=== PATIENT | female | born 1995 | race Hispanic/Latino ===

== ENCOUNTER 2017-02-02 15:54 | Inpatient (IN) | payer OTHER ==
[~2017-02-02] VITALS: Ht 160 cm; Wt 84.4 kg
[2017-02-02] VITALS (11 sets, daily range): BP systolic 104–127; BP diastolic 63–77
[~2017-02-02 15:54] MED LIST: BACTRIM DS1 TAB PO; CALNA PO; CETRIZINE HCL PO; EPIPEN 2-PAK0.3 MG IM; FERROUS SULF325 M1 PO; IBUPROFEN600 MG PO; NAPROSYN500 MG PO; NO HOME MEDS; OMEPRAZOLE40 MG PO; PREDNISONE20 MG OR; PREDNISONE50 MG PO; TAM75CAP PO; ZOFRAN ODT4 MG PO; ZOFRAN8 MG OR
[2017-02-02 16:37] LABS: URINE BILIRUBIN - DIPSTICK NEGATIVE (NEGATIVE); URINE BLOOD DIPSTICK NEGATIVE (NEGATIVE); URINE CLARITY CLEAR; URINE COLOR YELLOW; URINE GLUCOSE - DIPSTICK NEGATIVE (NEGATIVE); URINE KETONE NEGATIVE (NEGATIVE); URINE LEUK ESTERASE NEGATIVE (NEGATIVE); URINE NITRITE - DIPSTICK NEGATIVE (Negative); URINE PROTEIN - DIPSTICK NEGATIVE (NEG-TRACE)
[2017-02-02 16:40] LABS: BARBITURATES NEGATIVE (NEGATIVE); COCAINE NEGATIVE (NEGATIVE); METHADONE NEGATIVE (NEGATIVE); OXCYCODONE NEGATIVE (NEGATIVE); TETRAHYDROCANNABIONOL NEGATIVE (NEGATIVE); TRICYLIC ANTIDEPRESSANTS NEGATIVE (NEGATIVE)
[2017-02-02 17:57] LABS: HEMATOCRIT 27.9 % (37.0-47.0); IMMATURE GRANULOCYTES 0.5 % (0.0-1.0); MEAN CELL VOLUME 65.2 fL CALC (80.0-100.0); MEAN CORPUSCULAR HGB 18.7 pG CALC (26.0-32.0); MEAN CORPUSCULAR HGB CONC 28.7 g/L CALC (32.0-36.0); NEUT# 8.15 thou/uL (2.00-7.15); RED BLOOD COUNT 4.28 mill/uL (4.20-5.60); RED CELL DISTRI WIDTH 16.7 % (11.5-15.5)
[2017-02-02 18:04] LABS: ALBUMIN 3.6 g/dL (3.2-5.0); ALKALINE PHOSPHATASE 162 u/l (38-126); ANION GAP 13 (6-22 (CALC)); BILIRUBIN, TOTAL 0.6 mg/dL (0.0-1.4); BUN 7 mg/dL (7-17); BUN/CREATININE RATIO 12 (12-20 (CALC)); CALCIUM 8.8 mg/dL (8.4-10.2); CARBON DIOXIDE 22 mmol/l (22-30); CHLORIDE 104 mmol/l (95-108); CREATININE 0.5 mg/dL (0.5-1.0); GFR > 60 ML/MIN (>=60 (CALC)); GFR FOR AFR.AMER. > 60 ML/MIN (>=60 (CALC)); GLUCOSE 72 mg/dL (65-105); POTASSIUM 4.1 mmol/l (3.5-5.1); SGOT/AST 33 u/l (14-36); SGPT/ALT 31 u/l (9-52); SODIUM 136 mmol/l (137-146); TOTAL PROTEIN 6.8 g/dL (6.3-8.2)
[2017-02-02] MEDS ORDERED: FERR SULFATE325 MG PO (18:05)
[2017-02-03] VITALS (28 sets, daily range): BP systolic 90–138; BP diastolic 50–87
[2017-02-04 04:58] LABS: IMMATURE GRANULOCYTES 0.5 % (0.0-1.0); NEUT# 6.93 thou/uL (2.00-7.15)
[2017-02-04 05:03] LABS: HEMATOCRIT 24.3 % (37.0-47.0); MEAN CORPUSCULAR HGB 19.3 pG CALC (26.0-32.0); MEAN CORPUSCULAR HGB CONC 29.2 g/L CALC (32.0-36.0); RED BLOOD COUNT 3.68 mill/uL (4.20-5.60); RED CELL DISTRI WIDTH 15.4 % (11.5-15.5)
[2017-02-04 05:53] LABS: HEMOGLOBIN 7.1 g/dl (12.0-16.0)
[2017-02-04 09:13] VITALS: BP 104/60
[2017-02-04 19:54] VITALS: BP 126/76
[2017-02-05 05:44] VITALS: BP 99/47
[2017-02-05] MEDS ORDERED: IBUPROFEN600 MG PO (07:39)
== END 2017-02-05 12:30 | disposition home or self-care (01) | DRG 775 ==
LOC: OBOP 15:54 → EDSTATUS 15:55 → OB 16:25 → OBOP 16:25 → OB 16:25 → OBOP 17:09 → OB 17:10
PROVIDERS: ADMIT Obstetrics & Gynecology; ATTEND Obstetrics & Gynecology
PROC: 10E0XZZ Delivery of Products of Conception, External Approach (ICD-10-PCS; principal; 2017-02-03)
PROC: 3E033VJ Introduction of Other Hormone into Peripheral Vein, Percutaneous Approach (ICD-10-PCS; 2017-02-03)
DX: O42.02 Full-term premature rupture of membranes, onset of labor within 24 hours of rupture (principal); O99.824 Streptococcus B carrier state complicating childbirth; Z3A.37 37 weeks gestation of pregnancy; Z37.0 Single live birth
CPT/HCPCS: J2540

== ENCOUNTER 2017-03-01 15:39 | Inpatient (IN) | payer OTHER ==
[~2017-03-01] VITALS: Ht 160 cm; Wt 76.4 kg
[~2017-03-01 15:39] MED LIST changes: +FERR SULFATE325 MG PO
[2017-03-01 16:15] LABS: HEMATOCRIT 28.4 % (37.0-47.0); IMMATURE GRANULOCYTES 0.7 % (0.0-1.0); MEAN CELL VOLUME 64.8 fL CALC (80.0-100.0); MEAN CORPUSCULAR HGB 18.3 pG CALC (26.0-32.0); MEAN CORPUSCULAR HGB CONC 28.2 g/L CALC (32.0-36.0); NEUT# 14.6 thou/uL (2.00-7.15); RED BLOOD COUNT 4.38 mill/uL (4.20-5.60); RED CELL DISTRI WIDTH 17.6 % (11.5-15.5)
[2017-03-01 16:32] LABS: ALBUMIN 4.3 g/dL (3.2-5.0); ALKALINE PHOSPHATASE 90 u/l (38-126); AMYLASE 39 u/l (30-110); ANION GAP 18 (6-22 (CALC)); BILIRUBIN, TOTAL 0.8 mg/dL (0.0-1.4); BUN 12 mg/dL (7-17); BUN/CREATININE RATIO 16 (12-20 (CALC)); CARBON DIOXIDE 21 mmol/l (22-30); CHLORIDE 103 mmol/l (95-108); CREATININE 0.7 mg/dL (0.5-1.0); GFR > 60 ML/MIN (>=60 (CALC)); GFR FOR AFR.AMER. > 60 ML/MIN (>=60 (CALC)); GLUCOSE 100 mg/dL (65-105); LIPASE 23 u/l (23-300); SGOT/AST 45 u/l (14-36); SGPT/ALT 37 u/l (9-52); SODIUM 138 mmol/l (137-146); TOTAL PROTEIN 8.2 g/dL (6.3-8.2)
[2017-03-01 17:41] LABS: URINE BILIRUBIN - DIPSTICK NEGATIVE (NEGATIVE); URINE BLOOD DIPSTICK SMALL (NEGATIVE); URINE CLARITY SLIGHT CLOUDY; URINE COLOR YELLOW; URINE GLUCOSE - DIPSTICK NEGATIVE (NEGATIVE); URINE KETONE >=80 mg/dL (NEGATIVE); URINE LEUK ESTERASE SMALL (NEGATIVE); URINE NITRITE - DIPSTICK POSITIVE (Negative); URINE PROTEIN - DIPSTICK 100 mg/dL (NEG-TRACE)
[2017-03-01 17:52] LABS: URINE SQUAMOUS EPITHELIAL CELL FEW EPI/hpf (0-FEW)
[2017-03-01 17:53] LABS: URINE BACTERIA MODERATE hpf
[2017-03-01 19:50] VITALS: BP 103/68
[2017-03-01 21:51] VITALS: BP 90/58
[2017-03-01 22:35] VITALS: BP 101/66
[2017-03-01 23:20] VITALS: BP 95/59
[2017-03-02] VITALS (7 sets, daily range): BP systolic 102–125; BP diastolic 61–77
[2017-03-02 06:32] LABS: HEMATOCRIT 27.3 % (37.0-47.0); HEMOGLOBIN 7.8 g/dl (12.0-16.0); IMMATURE GRANULOCYTES 0.7 % (0.0-1.0); MEAN CELL VOLUME 69.1 fL CALC (80.0-100.0); MEAN CORPUSCULAR HGB 19.7 pG CALC (26.0-32.0); MEAN CORPUSCULAR HGB CONC 28.6 g/L CALC (32.0-36.0); NEUT# 10.26 thou/uL (2.00-7.15); RED BLOOD COUNT 3.95 mill/uL (4.20-5.60); RED CELL DISTRI WIDTH 20.4 % (11.5-15.5)
[2017-03-02 06:36] LABS: ANION GAP 14 (6-22 (CALC)); BUN 13 mg/dL (7-17); BUN/CREATININE RATIO 20 (12-20 (CALC)); CALCIUM 8.4 mg/dL (8.4-10.2); CARBON DIOXIDE 20 mmol/l (22-30); CHLORIDE 110 mmol/l (95-108); CREATININE 0.6 mg/dL (0.5-1.0); GFR > 60 ML/MIN (>=60 (CALC)); GFR FOR AFR.AMER. > 60 ML/MIN (>=60 (CALC)); GLUCOSE 109 mg/dL (65-105); POTASSIUM 3.4 mmol/l (3.5-5.1); SODIUM 140 mmol/l (137-146)
[2017-03-02 08:10] LABS: HEMATOCRIT 26.6 % (37.0-47.0); HEMOGLOBIN 7.8 g/dl (12.0-16.0); IMMATURE GRANULOCYTES 0.7 % (0.0-1.0); MEAN CELL VOLUME 68.4 fL CALC (80.0-100.0); MEAN CORPUSCULAR HGB 20.1 pG CALC (26.0-32.0); MEAN CORPUSCULAR HGB CONC 29.3 g/L CALC (32.0-36.0); NEUT# 8.82 thou/uL (2.00-7.15); RED BLOOD COUNT 3.89 mill/uL (4.20-5.60)
[2017-03-03 04:24] VITALS: BP 100/64
[2017-03-03 05:33] LABS: HEMATOCRIT 26.3 % (37.0-47.0); HEMOGLOBIN 7.4 g/dl (12.0-16.0); IMMATURE GRANULOCYTES 0.8 % (0.0-1.0); MEAN CELL VOLUME 69.4 fL CALC (80.0-100.0); MEAN CORPUSCULAR HGB 19.5 pG CALC (26.0-32.0); MEAN CORPUSCULAR HGB CONC 28.1 g/L CALC (32.0-36.0); NEUT# 5.68 thou/uL (2.00-7.15); RED BLOOD COUNT 3.79 mill/uL (4.20-5.60)
[2017-03-03 05:47] LABS: ANION GAP 12 (6-22 (CALC)); BUN 8 mg/dL (7-17); BUN/CREATININE RATIO 14 (12-20 (CALC)); CALCIUM 8.1 mg/dL (8.4-10.2); CARBON DIOXIDE 19 mmol/l (22-30); CHLORIDE 113 mmol/l (95-108); CREATININE 0.5 mg/dL (0.5-1.0); GFR > 60 ML/MIN (>=60 (CALC)); GFR FOR AFR.AMER. > 60 ML/MIN (>=60 (CALC)); GLUCOSE 80 mg/dL (65-105); POTASSIUM 3.7 mmol/l (3.5-5.1); SODIUM 140 mmol/l (137-146)
[2017-03-03 07:42] VITALS: BP 112/83
[2017-03-03 11:06] VITALS: BP 104/69
[2017-03-03] MEDS ORDERED: BACTRIM DS1 TAB PO (11:51)
[2017-03-03 15:20] VITALS: BP 113/78
== END 2017-03-03 18:37 | disposition home or self-care (01) | DRG 776 ==
LOC: ENPENDDIS → ED 15:39 → ED-I 16:26 → ED 16:26 → ED-I 18:14 → ED 18:32 → MS2 18:33
PROVIDERS: Emergency Medicine; Internal Medicine; Nurse Practitioner Family; ADMIT Internal Medicine; ATTEND Internal Medicine
PROC: 30233N1 Transfusion of Nonautologous Red Blood Cells into Peripheral Vein, Percutaneous Approach (ICD-10-PCS; principal; 2017-03-01)
DX: O86.21 Infection of kidney following delivery (principal); B96.20 Unspecified Escherichia coli [E. coli] as the cause of diseases classified elsewhere; O90.89 Other complications of the puerperium, not elsewhere classified; E87.6 Hypokalemia; O90.81 Anemia of the puerperium; D50.9 Iron deficiency anemia, unspecified
CPT/HCPCS: J0692; P9016; Q9967

== ENCOUNTER 2017-10-03 16:44 | Emergency (ER) | payer SELFPAY ==
[~2017-10-03] VITALS: Ht 160 cm; Wt 75.0 kg
[2017-10-03] MEDS ORDERED: FERRAPLUS 90 PO (17:15)
[2017-10-03] MEDS ORDERED: EPIPEN 2-P0.3 MG/0.3 IM (18:32)
[2017-10-03] MEDS ORDERED: PREDNISONE50 MG PO (18:32)
[2017-10-03 21:08] LABS: HEMATOCRIT 36.5 % (37.0-47.0); HEMOGLOBIN 10.8 g/dl (12.0-16.0); IMMATURE GRANULOCYTES 0.3 % (0.0-1.0); MEAN CELL VOLUME 72.3 fL CALC (80.0-100.0); MEAN CORPUSCULAR HGB 21.4 pG CALC (26.0-32.0); MEAN CORPUSCULAR HGB CONC 29.6 g/L CALC (32.0-36.0); NEUT# 3.86 thou/uL (2.00-7.15); RED BLOOD COUNT 5.05 mill/uL (4.20-5.60); RED CELL DISTRI WIDTH 16.7 % (11.5-15.5)
[2017-10-03 21:14] LABS: ALBUMIN 4.3 g/dL (3.2-5.0); ALKALINE PHOSPHATASE 61 u/l (38-126); ANION GAP 18 (6-22 (CALC)); BILIRUBIN, TOTAL 0.3 mg/dL (0.0-1.4); BUN 17 mg/dL (7-17); BUN/CREATININE RATIO 22 (12-20 (CALC)); CARBON DIOXIDE 22 mmol/l (22-30); CHLORIDE 110 mmol/l (95-108); CREATININE 0.7 mg/dL (0.5-1.0); GFR > 60 ML/MIN (>=60 (CALC)); GFR FOR AFR.AMER. > 60 ML/MIN (>=60 (CALC)); POTASSIUM 4.3 mmol/l (3.5-5.1); SGOT/AST 24 u/l (14-36); SGPT/ALT 21 u/l (9-52); SODIUM 146 mmol/l (137-146); TOTAL PROTEIN 7.3 g/dL (6.3-8.2)
[2017-10-03 21:39] LABS: URINE BILIRUBIN - DIPSTICK NEGATIVE (NEGATIVE); URINE BLOOD DIPSTICK SMALL (NEGATIVE); URINE COLOR YELLOW; URINE GLUCOSE - DIPSTICK NEGATIVE (NEGATIVE); URINE KETONE NEGATIVE (NEGATIVE); URINE LEUK ESTERASE NEGATIVE (NEGATIVE); URINE NITRITE - DIPSTICK NEGATIVE (Negative); URINE PROTEIN - DIPSTICK TRACE mg/dL (NEG-TRACE); URINE SPECIFIC GRAVITY 1.025; URINE UROBILINOGEN - DIPSTICK 0.2 E.U./dL (0.2)
[2017-10-03 21:41] LABS: URINE CLARITY CLEAR
[2017-10-03 21:42] LABS: BARBITURATES NEGATIVE (NEGATIVE); COCAINE NEGATIVE (NEGATIVE); METHADONE NEGATIVE (NEGATIVE); OXCYCODONE NEGATIVE (NEGATIVE); TETRAHYDROCANNABIONOL NEGATIVE (NEGATIVE); TRICYLIC ANTIDEPRESSANTS NEGATIVE (NEGATIVE)
[2017-10-03 21:48] LABS: URINE MUCUS FEW hpf (NONE-FEW); URINE SQUAMOUS EPITHELIAL CELL FEW EPI/hpf (0-FEW); URINE WBC 0-2 WBC/hpf (0-5)
[2017-10-03 22:33] VITALS: BP 108/69
== END 2017-10-03 22:45 | disposition home or self-care (01) | DRG 916 ==
LOC: ED 16:44
PROVIDERS: Emergency Medicine
DX: T78.3XXA Angioneurotic edema, initial encounter (principal)

== ENCOUNTER 2019-01-01 19:23 | Emergency (ER) | payer OTHER ==
[~2019-01-01] VITALS: Ht 160 cm; Wt 81.8 kg
[~2019-01-01 19:23] MED LIST changes: +EPIPEN 2-P0.3 MG/0.3 IM; +FERRAPLUS 90 PO
[2019-01-01 20:13] LABS: HEMATOCRIT 34.8 % (37.0-47.0); HEMOGLOBIN 11.1 g/dl (12.0-16.0); IMMATURE GRANULOCYTES 0.5 % (0.0-5.0); MEAN CELL VOLUME 76.7 fL CALC (80.0-100.0); MEAN CORPUSCULAR HGB 24.4 pG CALC (26.0-32.0); MEAN CORPUSCULAR HGB CONC 31.9 g/L CALC (32.0-36.0); NEUT# 8.26 thou/uL (2.00-7.15); RED BLOOD COUNT 4.54 mill/uL (4.20-5.60); RED CELL DISTRI WIDTH 15.3 % (11.5-15.5)
[2019-01-01 20:14] LABS: URINE BILIRUBIN - DIPSTICK NEGATIVE (NEGATIVE); URINE BLOOD DIPSTICK NEGATIVE (NEGATIVE); URINE COLOR YELLOW; URINE GLUCOSE - DIPSTICK NEGATIVE (NEGATIVE); URINE KETONE 40 mg/dL (NEGATIVE); URINE NITRITE - DIPSTICK NEGATIVE (Negative); URINE PROTEIN - DIPSTICK 30 mg/dL (NEG-TRACE); URINE SPECIFIC GRAVITY 1.025
[2019-01-01 20:15] LABS: URINE LEUK ESTERASE MODERATE (NEGATIVE)
[2019-01-01 20:27] LABS: URINE SQUAMOUS EPITHELIAL CELL MODERATE EPI/hpf (0-FEW); URINE WBC 20-50 WBC/hpf (0-5)
[2019-01-01 20:33] LABS: ALKALINE PHOSPHATASE 81 u/l (38-126); ANION GAP 14 (6-22 (CALC)); BILIRUBIN, TOTAL 0.4 mg/dL (0.0-1.4); BUN 9 mg/dL (7-17); BUN/CREATININE RATIO 18 (12-20 (CALC)); CARBON DIOXIDE 24 mmol/l (22-30); CHLORIDE 103 mmol/l (95-108); CREATININE 0.5 mg/dL (0.5-1.0); GFR > 60 ML/MIN (>=60 (CALC)); GFR FOR AFR.AMER. > 60 ML/MIN (>=60 (CALC)); POTASSIUM 3.6 mmol/l (3.5-5.1); SGOT/AST 15 u/l (14-36); SODIUM 137 mmol/l (137-146)
[2019-01-01] MEDS ORDERED: CEPHALEXIN500 M1 PO (20:39)
[2019-01-01] MEDS ORDERED: ZOFRAN ODT4 MG PO (20:39)
[2019-01-01 21:10] VITALS: BP 99/70
[2019-01-01] MEDS ORDERED: PHENERGAN25 M1 PR (21:10)
== END 2019-01-01 21:10 | disposition home or self-care (01) ==
LOC: ED 19:23
PROVIDERS: Emergency Medicine
DX: O23.91 Unspecified genitourinary tract infection in pregnancy, first trimester (principal); B96.1 Klebsiella pneumoniae [K. pneumoniae] as the cause of diseases classified elsewhere; R11.10 Vomiting, unspecified; Z3A.01 Less than 8 weeks gestation of pregnancy

== ENCOUNTER 2021-01-16 22:47 | Emergency (ER) | payer OTHER ==
[~2021-01-16] VITALS: Ht 160 cm; Wt 71.0 kg
[~2021-01-16 22:47] MED LIST changes: +CEPHALEXIN500 M1 PO; +PHENERGAN25 M1 PR
[2021-01-16] MEDS ORDERED: CONCERTA18 MG PO (23:35)
[2021-01-16 23:48] LABS: HEMATOCRIT 36.8 % (37.0-47.0); HEMOGLOBIN 12.5 g/dl (12.0-16.0); IMMATURE GRANULOCYTES 0.3 % (0.0-5.0); MEAN CELL VOLUME 83.1 fL CALC (80.0-100.0); MEAN CORPUSCULAR HGB 28.2 pG CALC (26.0-32.0); NEUT# 4.74 thou/uL (2.00-7.15); RED BLOOD COUNT 4.43 mill/uL (4.20-5.60); RED CELL DISTRI WIDTH 12.7 % (11.5-15.5)
[2021-01-16 23:49] LABS: URINE BILIRUBIN - DIPSTICK NEGATIVE (NEGATIVE); URINE BLOOD DIPSTICK SMALL (NEGATIVE); URINE COLOR YELLOW; URINE GLUCOSE - DIPSTICK NEGATIVE (NEGATIVE); URINE KETONE NEGATIVE (NEGATIVE); URINE LEUK ESTERASE NEGATIVE (NEGATIVE); URINE PH 6.5 (4.5-8.0); URINE PROTEIN - DIPSTICK NEGATIVE (NEG-TRACE); URINE SPECIFIC GRAVITY 1.025
[2021-01-16 23:52] LABS: URINE NITRITE - DIPSTICK NEGATIVE (Negative)
[2021-01-16 23:59] LABS: URINE BACTERIA FEW hpf; URINE MUCUS FEW hpf (NONE-FEW); URINE SQUAMOUS EPITHELIAL CELL FEW EPI/hpf (0-FEW)
[2021-01-17 00:17] LABS: ALBUMIN 3.8 g/dL (3.2-5.0); ALKALINE PHOSPHATASE 49 u/l (38-126); ANION GAP 10 (6-22 (CALC)); BILIRUBIN, TOTAL 0.3 mg/dL (0.0-1.4); BUN 14 mg/dL (7-17); BUN/CREATININE RATIO 28 (12-20 (CALC)); CARBON DIOXIDE 26 mmol/l (22-30); CHLORIDE 106 mmol/l (95-108); CREATININE 0.5 mg/dL (0.5-1.0); GFR > 60 ML/MIN (>=60 (CALC)); GFR FOR AFR.AMER. > 60 ML/MIN (>=60 (CALC)); POTASSIUM 3.5 mmol/l (3.5-5.1); SGOT/AST 24 u/l (14-36); SODIUM 139 mmol/l (137-146); TOTAL PROTEIN 7.3 g/dL (6.3-8.2)
[2021-01-17] MEDS ORDERED: NAPROXEN500 MG PO (01:11)
[2021-01-17 01:49] VITALS: BP 116/64
== END 2021-01-17 01:48 | disposition home or self-care (01) ==
LOC: ED 22:47
PROVIDERS: Family Medicine
DX: N94.6 Dysmenorrhea, unspecified (principal)

== ENCOUNTER 2022-10-05 11:31 | Emergency (ER) | payer OTHER ==
[~2022-10-05] VITALS: Ht 160 cm; Wt 69.0 kg
[~2022-10-05 11:31] MED LIST changes: +CONCERTA18 MG PO; +NAPROXEN500 MG PO
[2022-10-05 11:58] VITALS: BP 119/85
[2022-10-05 12:00] VITALS: BP 120/88
[2022-10-05 12:33] VITALS: BP 106/76
[2022-10-05 12:36] LABS: URINE BLOOD DIPSTICK NEGATIVE (NEGATIVE); URINE COLOR YELLOW; URINE GLUCOSE - DIPSTICK NEGATIVE (NEGATIVE); URINE KETONE TRACE mg/dL (NEGATIVE); URINE LEUK ESTERASE NEGATIVE (NEGATIVE); URINE PH 5.5 (4.5-8.0); URINE PROTEIN - DIPSTICK 30 mg/dL (NEG-TRACE); URINE SPECIFIC GRAVITY >=1.030; URINE UROBILINOGEN - DIPSTICK 0.2 E.U./dL (0.2)
[2022-10-05 12:41] LABS: URINE NITRITE - DIPSTICK NEGATIVE (Negative)
[2022-10-05 12:42] LABS: URINE BILIRUBIN - DIPSTICK NEGATIVE (NEGATIVE)
[2022-10-05 12:45] VITALS: BP 112/77
[2022-10-05 12:46] LABS: URINE HYALINE CAST FEW lpf (NONE-RARE); URINE MUCUS MODERATE hpf (NONE-FEW); URINE SQUAMOUS EPITHELIAL CELL MODERATE EPI/hpf (0-FEW)
[2022-10-05] MEDS ORDERED: TAM75CAP PO (13:14)
[2022-10-05 13:15] VITALS: BP 107/77
[2022-10-05 13:30] VITALS: BP 116/89
== END 2022-10-05 13:45 | disposition home or self-care (01) ==
LOC: ED 11:31
PROVIDERS: Nurse Practitioner
DX: J10.1 Influenza due to other identified influenza virus with other respiratory manifestations (principal); Z20.822 Contact with and (suspected) exposure to COVID-19

== ENCOUNTER 2022-11-05 07:51 | Emergency (ER) | payer OTHER ==
[~2022-11-05] VITALS: Ht 160 cm; Wt 72.6 kg
[2022-11-05 08:03] VITALS: BP 115/78
[2022-11-05] MEDS ORDERED: OFLOXACIN0.3 % OU (08:15)
[2022-11-05 08:31] VITALS: BP 116/81
[2022-11-05 09:00] VITALS: BP 108/74
[2022-11-05 09:09] VITALS: BP 108/74
== END 2022-11-05 09:15 | disposition home or self-care (01) ==
LOC: ED 07:51
DX: J06.9 Acute upper respiratory infection, unspecified (principal); H10.9 Unspecified conjunctivitis; Z20.822 Contact with and (suspected) exposure to COVID-19

== ENCOUNTER 2023-04-16 19:34 | Emergency (ER) | payer SELFPAY ==
[~2023-04-16] VITALS: Ht 160 cm; Wt 81.0 kg
[~2023-04-16 19:34] MED LIST changes: +OFLOXACIN0.3 % OU
[2023-04-16 19:44] VITALS: BP 119/74
[2023-04-16 19:45] VITALS: BP 115/78
[2023-04-16 20:00] VITALS: BP 112/77
[2023-04-16 20:15] VITALS: BP 119/81
[2023-04-16 20:31] VITALS: BP 108/86
== END 2023-04-16 20:47 | disposition home or self-care (01) | DRG 605 ==
LOC: ED 19:34
DX: S01.81XA Laceration without foreign body of other part of head, initial encounter (principal); W22.09XA Striking against other stationary object, initial encounter